=== PATIENT | male | born 1975 | race Caucasian/White ===

== ENCOUNTER → 2019-05-06 | Outpatient (CLI) | payer OTHER | LOC: RAD 08:21 | DX: M51.37 Other intervertebral disc degeneration, lumbosacral region (principal); M47.817 Spondylosis without myelopathy or radiculopathy, lumbosacral region ==

== ENCOUNTER → 2019-06-22 | Outpatient (CLI) | payer OTHER | LOC: RAD 07:22 | DX: M54.15 Radiculopathy, thoracolumbar region (principal) ==

== ENCOUNTER → 2020-05-25 | Outpatient (CLI) | payer OTHER | LOC: RAD 16:50 | DX: S59.901A Unspecified injury of right elbow, initial encounter (principal) ==

== ENCOUNTER 2020-07-13 19:41 | Emergency (ER) | payer OTHER ==
[~2020-07-13] VITALS: Ht 297.2 cm; Wt 100.0 kg
[2020-07-13] MEDS ORDERED: HYZAAR 50-12.51 EACH PO (20:18)
[2020-07-13] MEDS ORDERED: BACTRIM DS TAB1 EACH PO (20:19)
[2020-07-13 21:34] LABS: HEMATOCRIT 39.9 % (42.0-52.0); HEMOGLOBIN 13.1 g/dL (13.5-18.0); MEAN CELL VOLUME 92 fl (78-100); MEAN CORPUSCULAR HEMOGLOBIN 30 pg (27-31); MEAN CORPUSCULAR HGB CONC 33 g/dL (33-37); MEAN PLATELET VOLUME 9.3 fl (7.4-10.4); PLATELET COUNT 187 K/mm3 (130-400); RED BLOOD COUNT 4.35 M/mm3 (4.20-5.60); RED CELL DISTRIBUTION WIDTH 12.7 % (11.5-14.5); WHITE BLOOD COUNT 6.1 K/mm3 (4.8-10.8)
[2020-07-13] MEDS ORDERED: CLEOCIN HCL150 M1 PO (21:35)
[2020-07-13 21:50] LABS: LYMPHOCYTE 21 % (20-51); MONOCYTE 13 % (3-10); NEUTROPHILS 64 % (42-75)
[2020-07-13 22:14] VITALS: BP 118/87
== END 2020-07-13 22:12 | disposition home or self-care (01) ==
LOC: ED 19:41
PROVIDERS: Family Medicine
DX: L03.113 Cellulitis of right upper limb (principal); I10 Essential (primary) hypertension

== ENCOUNTER → 2020-07-13 | Outpatient (CLI) | payer OTHER ==
[~2020-07-13] MED LIST: BACTRIM DS TAB1 EACH PO; CLEOCIN HCL150 M1 PO; HYZAAR 50-12.51 EACH PO
[2020-07-13 11:16] LABS: HEMATOCRIT 41.5 % (42.0-52.0); HEMOGLOBIN 13.8 g/dL (13.5-18.0); MEAN CELL VOLUME 91 fl (78-100); MEAN CORPUSCULAR HEMOGLOBIN 30 pg (27-31); MEAN CORPUSCULAR HGB CONC 33 g/dL (33-37); MEAN PLATELET VOLUME 9.4 fl (7.4-10.4); PLATELET COUNT 192 K/mm3 (130-400); RED BLOOD COUNT 4.54 M/mm3 (4.20-5.60); RED CELL DISTRIBUTION WIDTH 12.8 % (11.5-14.5); WHITE BLOOD COUNT 6.8 K/mm3 (4.8-10.8)
[2020-07-13 11:29] LABS: ALBUMIN 4.4 g/dL (3.5-5.0)
[2020-07-13 11:30] LABS: POTASSIUM 3.8 mmol/L (3.5-5.1)
[2020-07-13 11:32] LABS: TOTAL PROTEIN 7.2 g/dL (6.4-8.3)
[2020-07-13 11:34] LABS: TOTAL BILIRUBIN 1.3 mg/dL (0.2-1.2)
[2020-07-13 11:37] LABS: BAND 1 % (0-10); LYMPHOCYTE 17 % (20-51); MONOCYTE 11 % (3-10); NEUTROPHILS 70 % (42-75)
== END ==
LOC: RAD 10:59
PROVIDERS: Nurse Practitioner
DX: M25.441 Effusion, right hand (principal)